=== PATIENT | male | born 1990 | race African-American/Black ===

== ENCOUNTER 2017-11-04 15:35 | Emergency (ER) | payer OTHER, SELFPAY ==
--- NOTE | 2017-11-04 16:06 | CT ---
CT HEAD WITHOUT IV CONTRAST: Date: 11-04-17 History: Patient fell and hit wall. Head injury. Head ache. EMS reports positive LOC. Laceration to f [place]head. FINDINGS: There is no evidence of a hemorrhage, acute infarction, mass effect, or midline shift. Ventricular sy stem is normal in size, shape, and position. There is soft tissue irregularity with subcutaneous emph ysema and soft tissue swelling seen in the left supraorbital frontal scalp region related to lacerati on. No underlying fracture is seen. There is no radiopaque foreign body seen. There is opacification of the right posterior left ethmoidal air cell. Remainder of the paranasal sin uses are clear. Minimal mastoid effusions are seen on the right. IMPRESSION: 1. No acute intracranial abnormalities demonstrated. 2. Left frontal scalp hematoma and laceration. 3. Above findings discussed with Dr. Sevilla in the Emergency Department on 11-04-17 at 1554 hours. POS: [facility]
[2017-11-04] MEDS ORDERED: Lidocaine 1% w/Epinephrine 1:100K 20 ML VIAL ONE (16:12)
--- NOTE | 2017-11-04 16:12 | CT ---
CT CERVICAL SPINE WITHOUT CONTRAST: Indication: Post-traumatic neck injury. Pain. FINDINGS/IMPRESSION: There is no evidence of acute fracture or subluxation of the cervical spine. Prevertebral body height s and disc space heights are preserved. No craniocervical distraction. Notification placed to ER physician at 1555 hours, Dr. Sevilla. Code CR POS: [id number]
[2017-11-04] MEDS ORDERED: Adacel (T-DAP) 0.5 ML VIAL ONE (17:11)
== END 2017-11-04 18:02 | disposition home or self-care (01) ==
LOC: EEVIPCON 15:35 → ERS 15:35
DX: S06.9X1A Unspecified intracranial injury with loss of consciousness of 30 minutes or less, initial encounter (principal); S01.81XA Laceration without foreign body of other part of head, initial encounter; W22.01XA Walked into wall, initial encounter
CPT/HCPCS: 12015; 70450; 72125; 90471; 90715; 93005; G0390; J2001